=== PATIENT | female | born 1955 | race Caucasian/White ===

== ENCOUNTER → 2023-11-25 12:04 | Outpatient (REF) | payer MEDICARE, SELFPAY ==
[2023-11-25 13:28] LABS: % Basophils 1.1 % (0-2); % Immature Granulocytes 0.2 % (0-0.5); % Lymphocytes 48.5 % (20.5-51.1); % Monocytes 8.2 % (1.7-9.3); Absolute Basophils 0.1 10^3/uL (0-0.2); Absolute Eosinophils 0.3 10^3/uL (0-0.7); Absolute Lymphocytes 3.2 10^3/uL (1.2-3.4); Absolute Monocytes 0.5 10^3/uL (0.1-0.6); Absolute Neutrophils 2.5 10^3/uL (1.4-6.5); Hematocrit 39.3 % (37.0-47.0); Hemoglobin 13.1 g/dL (12.0-16.0); Mean Corp Hgb Conc. 33.3 g/dL (33.0-37.0); Mean Corpuscular Hgb 32.3 pg (27.0-31.0); Mean Corpuscular Volume 96.8 fL (81.0-99.0); Mean Platelet Volume 10.7 fL (7.4-10.4); Nucleated Red Blood Cells % 0 %; Platelet Count 241 10^3/uL (130-400); Red Blood Cell Count 4.06 10^6/uL (4.20-5.40); Red Cell Dist. Width 11.9 % (11.5-14.5); White Blood Cell Count 6.6 10^3/uL (4.8-10.8)
[2023-11-25 13:37] LABS: ALT (SGPT) 32 U/L (0-35); AST (SGOT) 29 U/L (14-36); Albumin 4.2 g/dl (3.5-5.0); Alkaline Phosphatase 83 U/L (38-126); Blood Urea Nitrogen 20 mg/dl (7-17); Calcium 8.6 mg/dl (8.4-10.2); Carbon Dioxide 26 mmol/L (22-30); Chloride 103 mmol/L (98-107); Glucose 122 mg/dl (70-99); HDL Cholesterol 48 mg/dl; LDL Cholesterol, Calculated 112 mg/dl; Potassium 4.2 mmol/L (3.5-5.1); Sodium 140 mmol/L (135-145); Total Bilirubin 0.5 mg/dl (0.2-1.3); Total Cholesterol 191 mg/dl (50-199); Total Protein 6.9 g/dl (6.3-8.2); Triglyceride 158 mg/dl (10-149); Very Low Density Lipoprotein 31 mg/dl (0-30); eGFR > 60.00
[2023-11-26 08:54] LABS: Glycohemoglobin (HgbA1c) 7.1 % (4.0-5.6)
== END ==
LOC: OLABBH 12:04
PROVIDERS: ATTENDING PHYSICIAN Family Medicine
DX: E78.5 Hyperlipidemia, unspecified (principal); E11.9 Type 2 diabetes mellitus without complications; I10 Essential (primary) hypertension
CPT/HCPCS: 80053; 80061; 83036; 85025

== ENCOUNTER → 2024-10-11 11:30 | Outpatient (REF) | payer MEDICARE, SELFPAY ==
[2024-10-11 17:28] LABS: Urine Character Cloudy (Clear)
[2024-10-11 17:46] LABS: Urine White Cell >100 /HPF (0-5)
== END ==
LOC: OLABBH 11:30
PROVIDERS: ATTENDING PHYSICIAN Family Medicine
DX: R30.0 Dysuria (principal)
CPT/HCPCS: 81003; 81015; 87077; 87086; 87186

== ENCOUNTER 2024-10-17 14:00 | Inpatient (IN) | payer MEDICARE, SELFPAY ==
[2024-10-13] VITALS (11 sets, daily range): BP systolic 84–122; BP diastolic 47–81; BMI 34.5; BMI 33.7
[2024-10-13 10:35] LABS: Hematocrit 39.1 % (37.0-47.0); Hemoglobin 13.4 g/dL (12.0-16.0); Mean Corp Hgb Conc. 34.3 g/dL (33.0-37.0); Mean Corpuscular Volume 96.1 fL (81.0-99.0); Nucleated Red Blood Cells % 0 %; Platelet Count 207 10^3/uL (130-400); Red Cell Dist. Width 12.1 % (11.5-14.5)
[2024-10-13 10:55] LABS: ALT (SGPT) 27 U/L (0-35); AST (SGOT) 25 U/L (14-36); Albumin 3.9 g/dl (3.5-5.0); Alkaline Phosphatase 75 U/L (38-126); Blood Urea Nitrogen 25 mg/dl (7-17); Calcium 8.8 mg/dl (8.4-10.2); Carbon Dioxide 23 mmol/L (22-30); Chloride 102 mmol/L (98-107); Estimated Creatinine Clearance 57 ml/min; Glucose 417 mg/dl (70-99); Potassium 3.5 mmol/L (3.5-5.1); Sodium 135 mmol/L (135-145); Total Protein 7.3 g/dl (6.3-8.2); eGFR > 60.00
--- NOTE | 2024-10-13 11:08 | ED.GENMED ---
History of Present Illness
General
Chief Complaint: Fainting/Passed Out
Source: halfway
Exam Limitations: dementia
Time Seen by Provider: 10/13/24 10:27
Nursing documentation reviewed up to this point in time: agreed with
History of Present Illness
History of Present Illness:
Patient is a 6-year-old female with history of hypertension high blood pressure type 2 diabetes presents from [facility]. Patient apparently had an unwitnessed fall at 7 AM. Triage note states that patient apparently got diagnosed with a
UTI several weeks ago but no treatment was started. Patient's medication list was sent from [facility] and there is no antibiotics on this list. She does have dementia and is a poor historian.
She does tell me she fell today. She denies any pain. She is not on blood thinners.
Nurse from [facility] reports mild baseline memory issues .
Nurse reports about 2 d ago pt seemed more confused. UA was obtained but they did not treat yet. Pt was apparently trying to get out of bed and was found on the floor. Paperwork mentions Type 2 diabetes however nurse reports pt has never been on
diabetic meds.
Past History
Past History
ED Past Medical History: Psychiatric
Social History
Tobacco: Non-smoker
Alcohol: None
Drug: None
Personal: Single
Living: alone
Phy Exam
General Physical Exam
General Presentation: no apparent distress
General age: appears stated age
General Skin: warm and dry
General Habitus: elderly
General Mental: confused
General Hydration: dry mucous membranes
Cardiovascular Exam
Cardiovascular Exam: regular rate/rhythm, no murmur and normal peripheral pulses
Pulmonary Exam
Pulmonary Exam: lungs clear and no respiratory distress
Neurological Exam
Neurological Exam: alert
Musculoskeletal Exam
Musculoskeletal Exam: full ROM
Skin Exam
Skin Exam: normal color and warm/dry
Psychiatric Exam
Psychiatric Exam: normal mood/affect
Course
Orders/Labs/Results
Orders:
Orders
10/13/24 10:27
CMP [Comprehensive Metabolic Panel] Urgent
Complete Blood Count/With Diff Urgent
10/13/24 11:09
CT Head W/o Iv Contrast Urgent
Comment:
Reason For Exam: fall
10/13/24 11:11
IV Insert/Care/Rem.- Treatment PRN
0.9% Sodium Chloride 500 ml [Nss] 500 ml IV BOLUS
10/13/24 11:13
Urinalysis Reflex To Culture Urgent
Date Specimen was Collected: 10/13/24
Time Specimen was Collected: 11:12
Urine Microscopic Reflex Cult Urgent
Urine Culture Urgent
TIANA Source: U
Specimen Description:
Date Specimen was Collected: 10/13/24
Time Specimen was Collected: 11:12
10/13/24 11:36
Electrocardiogram (*1) Stat
Reason for Study: Other
Other Reason for Exam: chest pain
Cardiac Monitoring- Treatment ONCE
EKG- Treatment ONCE
10/13/24 14:09
CefTRIAXone [Rocephin] 1,000 mg IV NOW STA
Abnormal Lab Results
10/13/24 10/13/24 10/13/24
10:27 11:13 13:45
RBC 4.07 L 10^6/uL
(4.20-5.40)
MCH 32.9 H pg
(27.0-31.0)
MPV 10.5 H fL
(7.4-10.4)
Absolute Neuts (auto) 8.4 H 10^3/uL
(1.4-6.5)
Absolute Lymphs (auto) 1.1 L 10^3/uL
(1.2-3.4)
Absolute Monos (auto) 0.9 H 10^3/uL
(0.1-0.6)
Neutrophils % 80.3 H %
(42.2-75.2)
Lymphocytes % 10.2 L %
(20.5-51.1)
BUN 25 H mg/dl
(7-17)
Glucose 417 H mg/dl
(70-99)
Urine Ketones 2+ A
(Negative)
Ur Occult Blood Reflex 4+ A
(Negative)
Urine Bilirubin 1+ A
(Negative)
Leukocyte Esterase Rfl 3+ A
(Negative)
Urine RBC 3-6 A /HPF
(0-2)
Urine WBC (Reflex) 70-80 A /HPF
(0-5)
Urine Bacteria (Reflex) Many A
(Negative)
Urine Albumin (Reflex) 4+ A
(Neg - Trace)
POC Glucose 258 H mg/dl
(70-99)
10/13/24 10:27
10/13/24 10:27
Vital Signs
Initial and Last Documented VS:
Initial Vital Signs
BP
101/67
10/13/24 10:14
Last Documented Vital Signs
Temp Pulse Resp BP Pulse Ox
98.5 F 82 18 89/55 86
10/13/24 10:17 10/13/24 13:15 10/13/24 10:17 10/13/24 13:08 10/13/24 13:15
MDM/Problems Addressed
Differential Diagnosis Includes:
Not limited to head injury, infection dehydration.
MDM/Problems Addressed:
Patient is a 69-year-old female from [facility] presents for evaluation of unwitnessed fall. Nurse reports that patient has had increased confusion for the past several days urinalysis was obtained and just came back today from the nursing
home the patient was not yet treated for positive UTI on urinalysis. Patient presents awake alert she is confused but she is aware that she fell she is trying to give history and does follow commands. CAT scan was done and negative there is no
obvious head injury. She is afebrile and nontoxic. Her white count is normal however urinalysis is positive for UTI.
In the setting of increased confusion fall and UTI would recommend treatment. IV Rocephin ordered. In addition patient's transfer sheet does that she has type 2 diabetes however I spoke with the nurse reports patient is not medicated for this.
Patient's sugar initially was 400 with normal renal function no gap. She received fluids and repeat sugar was 258. Also likely elevated in the acute infection
Chronic conditions affecting care:
Memory issues questionable diabetes
*Radiology
Radiology exam reviewed: radiology read reviewed
*Pulse Oximetry
SaO2: 95
Oxygen Mode of Delivery: Room air
Patient hypoxic: no
*EKG
Interpreted by ED Provider?: Yes
Heart Rate: 84
Rate: normal
Rhythm: sinus
Ischemia: no ischemia
*Critical Care Note
Total Time (30-74mins, 75-104mins- exclusive of procedures): Not Applicable
ED Attending Note
-
Portions of this chart may have been created with voice recognition software.� Occasional wrong word or��sound alike� substitutions may have occurred due to the inherent limitations of voice recognition software.
Discharge Plan
Departure
Patient Disposition: Admit
Date of Disposition: 10/13/24
Time of Disposition: 14:15
Admit to: Med/Surg
Admit to doctor: hospitalist
Presentation/result/management discussed w/ accepting MD/DO: Hospitalist
Patient with high blood pressure during this ER visit?: No
Condition: Fair
Covid-19: Not Applicable
Discharge Problem:
Acute UTI, Acute hyperglycemia
Referrals:
Morales Fraire MD [Family Provider, Family Practice]
Interventions
Interventions:
*Risk Screen - Suicide Last Done: 10/13/24 10:05
*General Assessment Last Done: 10/13/24 10:05
*Neglect/Abuse Screening Last Done: 10/13/24 10:05
*ED- Fall Risk Assessment Last Done: 10/13/24 10:05
*ED COVID-19 Vaccine History Last Done: 10/13/24 10:05
ED- Cardiac Assessment Last Done: 10/13/24 10:05
ED- Neurological Assessment Last Done: 10/13/24 10:05
Discharge Date and Time
Print Language: THAI
[2024-10-13] MEDS: NSS 500 IV (11:16)
[2024-10-13 11:40] LABS: Urine Character Cloudy (Clear)
[2024-10-13 12:20] LABS: Urine Squamous Cell 16-20 /LPF (Few)
[2024-10-13 12:21] LABS: Urine White Cell 70-80 /HPF (0-5)
--- NOTE | 2024-10-13 13:01 | ED TECH ---
[id number] Ale OWEN at [facility] for report when pt is discharged
[2024-10-13 13:47] LABS: Glucose - Point of Care 258 mg/dl (70-99)
[2024-10-13] MEDS: ROCEPHIN 1000 MG IV (14:42)
--- NOTE | 2024-10-13 15:32 | HPS.HSE ---
Family Physician
-
Family Physician: Morales Fraire
Chief Complaint
-
Fall, encephalopathy, UTI
History of Present Illness
Ms. Mendoza is a 69-year-old female with a medical history of dementia, hypertension, depression, and diabetes mellitus type 2 (reported, not on diabetic medications) who presented from her memory care unit ([facility]) after being found on the
ground. Patient does not remember how she ended up on the ground but remembers waking up there and calling for help. She denies any acute injuries. She is not on blood thinners. Staff at [facility] report worsening confusion over the past few
days prior to arrival. Reportedly patient was diagnosed with a UTI a few days ago but does not appear to have been started on antibiotics. Patient reports constipation which is chronic for her. She denies fevers, chest pain, shortness of breath,
abdominal pain, or dysuria.
In the ED, was hypotensive. She was breathing comfortably and saturating appropriately on room air. CT scan of her brain showed no acute abnormalities. Labs were significant for borderline leukocytosis 10.5, renal function and electrolytes are
within normal limits, blood glucose was 417, and urinalysis was positive for pyuria and bacteriuria in addition to albumin and RBCs. She was given IV fluids, following which her blood pressure improved. She was started on antibiotics with
ceftriaxone, and admitted for further evaluation and management of acute metabolic encephalopathy secondary to urinary tract infection.
Medical History
Past Medical History
Past Medical History: Reports Other
Additional Past Medical History:
dementia, hypertension, depression, and diabetes mellitus type 2 (reported, not on diabetic medications)
Past Surgical History: Reports Other
Additional Past Surgical History:
Patient reports laminectomy in her 20s, breast reduction surgery, right hand cyst removal
Social History
Unable to obtain full social history at this time due to: Dementia
Tobacco: Non-smoker
Alcohol: None
Drug: None
Personal: Single
Living: [facility]
Family History
Family History: Not pertinent
Allergies / Home Medications
Allergies reflects when Allergies were last updated in [facility].
Home Medications with original date entered in [facility]
Allergy/Medication List:
Allergies
Allergy/AdvReac Type Severity Reaction Status Date / Time
No Known Allergies Allergy Verified 04/30/22 15:53
Home Medications
acetaminophen 500 mg tablet (Tylenol Extra Strength) 1,000 mg PO BID 10/13/24
amlodipine 10 mg tablet (Norvasc) 10 mg PO DAILY 10/13/24
escitalopram oxalate 20 mg tablet (Lexapro) 20 mg PO DAILY 10/13/24
quetiapine 100 mg tablet (Seroquel) 100 mg PO DAILY 10/13/24
quetiapine 200 mg tablet 200 mg PO HS 10/13/24
rivastigmine tartrate 3 mg capsule 3 mg PO BID 10/13/24
Review of Systems
-
Unable to obtain full review of systems at this time due to: Dementia
History Source: Patient
A 12 point ROS was completed and negative except as noted: Yes
Neurological: Reports Other (Memory loss)
Physical Exam
Vital Signs
Vital Signs
Temp Pulse Resp BP Pulse Ox
98.5 F 84 18 104/47 90
10/13/24 10:17 10/13/24 15:00 10/13/24 10:17 10/13/24 15:00 10/13/24 15:00
Physical Exam
General: No Apparent Distress
Laboratory Results
-
10/13/24 10:27
10/13/24 10:27
Laboratory Results
Total Bilirubin 0.8 mg/dl (0.2-1.3) 10/13/24 10:27
AST 25 U/L (14-36) 10/13/24 10:27
ALT 27 U/L (0-35) 10/13/24 10:27
Alkaline Phosphatase 75 U/L (38-126) 10/13/24 10:27
Impression/Plan
-
General: No Apparent Distress, Comfortable and Conversant, obese
HEENT: NormoCephalic, Moist mucous membranes, Atraumatic
Respiratory: Clear and Non Labored Respirations
Cardiac: S1/S2 and Regular Rhythm; No Rub or Gallop
GI: Soft, Non Tender, Non Distended and Normal Bowel Sounds
Musculoskeletal: No Edema, no deformity
Skin: Warm and dry
: NO Brooks
Neuro: Awake, Alert, confusion with difficulty remembering recent events
Psych: Calm and cooperative
Ms. Mendoza is a 69-year-old female with a medical history of dementia, hypertension, depression, and diabetes mellitus type 2 (reported, not on diabetic medications) who presented from her memory care unit ([facility]) after being found on the
ground. Patient does not remember how she ended up on the ground but remembers waking up there and calling for help. She denies any acute injuries. She is not on blood thinners. Staff at [facility] report worsening confusion over the past few
days prior to arrival. Reportedly patient was diagnosed with a UTI a few days ago but does not appear to have been started on antibiotics. Patient reports constipation which is chronic for her. She denies fevers, chest pain, shortness of breath,
abdominal pain, or dysuria.
In the ED, was hypotensive. She was breathing comfortably and saturating appropriately on room air. CT scan of her brain showed no acute abnormalities. Labs were significant for borderline leukocytosis 10.5, renal function and electrolytes are
within normal limits, blood glucose was 417, and urinalysis was positive for pyuria and bacteriuria in addition to albumin and RBCs. She was given IV fluids, following which her blood pressure improved. She was started on antibiotics with
ceftriaxone, and admitted for further evaluation and management of acute metabolic encephalopathy secondary to urinary tract infection.
Acute metabolic encephalopathy secondary to urinary tract infection:
- Continue antibiotics with ceftriaxone
- Follow-up cultures taken in the ED today, prior urine cultures in chart from 10/11/2024 showed pansensitive E. coli
- Continue IV fluids, initially hypotensive but blood pressure appears to be returning to within normal limits, continue holding home amlodipine
- PT/OT evaluation
Diabetes mellitus type 2:
- Patient denies history of diabetes but says many of her family members were recently diagnosed with diabetes
- Patient's medication record that include any diabetic medications
- Blood glucose on initial labs here was 417, hemoglobin A1c from 11/25/2023 was 7.1%
- Will check hemoglobin A1c now
- Diabetic diet
- Sliding scale insulin
- Consult to diabetes nurse practitioner
Hypertension:
- Outpatient medication list show she uses amlodipine 10 mg daily at home, will hold due to presenting hypotension
- Restart antihypertensive regimen as able
Dementia:
- Presented from memory care unit at [facility]
- Will continue home escitalopram 20 mg daily, quetiapine 100 mg in the morning and 200 mg at night, and rivastigmine 3 mg twice daily
DVT prophylaxis: Lovenox
CODE STATUS: Full code
Total time spent on today's encounter was 55 minutes
[2024-10-13 18:22] LABS: Glucose - Point of Care 187 mg/dl (70-99)
--- NOTE | 2024-10-13 18:45 | PTCARENOTE ---
Rn relations coordinator-Called to Amara(guardian) and Macey (Rn at [facility]) for medical information.
[2024-10-13] MEDS: NSS 1000 IV (18:47)
[2024-10-13] MEDS: LOVENOX 40 MG SC (18:50)
[2024-10-13] MEDS: TYLENOL 1000 MG PO (20:17)
[2024-10-13] MEDS: EXELON 3 MG PO (20:17)
[2024-10-13 20:21] LABS: Glucose - Point of Care 237 mg/dl (70-99)
[2024-10-13] MEDS: SEROQUEL 200 MG PO (20:24)
[2024-10-13] MEDS: NOVOLOG FLEXPEN-LOW RESISTANCE 2 UNITS SC (20:24)
[2024-10-14] VITALS: BP 116/75
--- NOTE | 2024-10-14 06:31 | PTCARENOTE ---
Pt refusing care or to be changed this am. Pt is verbally abusive, waiving her call tavera at us. Pt yelling 'leave me the fuck alone and get the fuck away from me!' attempts made to re orient and explain to pt what we are doing and pt states 'I don't
give a fuck!' Will attempt to change pt again.
--- NOTE | 2024-10-14 06:54 | PN.DE.MGMTRT ---
Insulin Management
- -
10/14/2024 Diabetes management Consult
Patient admitted 10/13 s/p fall at [facility]. H HTN, diabetes, depression, dementia. Prior to admission was taking no diabetes medications. A1C ordered for today. Cr 1, eGFR > 60.
Patient is alert, confused, noncooperative. No family at bedside.
A1C 7.8%. Corrective insulin started, will add metformin 500 mg BID, Diet reduced from 2000 calorie to 1600 calorie.
Discussed with nurse
Will follow.
Diabetes History
- -
Type of Diabetes: 2
Pre-Admission Diabetes Regimen
10/13/24
10:27
Creatinine 1.0
Insulin Pump Settings
IP Diabetes Regimen
10/13/24 10/13/24 10/13/24
10:27 13:45 18:21
Glucose 417 H
POC Glucose 258 H 187 H
10/13/24
20:17
Glucose
POC Glucose 237 H
Patient Education
[2024-10-14 08:01] VITALS: BP 138/78
[2024-10-14 08:13] LABS: Glucose - Point of Care 191 mg/dl (70-99)
[2024-10-14] MEDS: SEROQUEL 100 MG PO (08:34)
[2024-10-14] MEDS: NOVOLOG FLEXPEN-LOW RESISTANCE 1 UNITS SC ×3 (08:34→18:28)
[2024-10-14] MEDS: TYLENOL 1000 MG PO ×2 (08:34→21:51)
[2024-10-14] MEDS: EXELON 3 MG PO ×2 (08:34→21:52)
[2024-10-14] MEDS: LEXAPRO 20 MG PO (08:34)
[2024-10-14] MEDS: DESENEX/MITRAZOL/ZEASORB 1 APPLIC TOPICAL ×2 (08:36→21:52)
[2024-10-14] MEDS: GLUCOPHAGE 500 MG PO ×2 (08:43→17:16)
[2024-10-14 09:32] LABS: Hematocrit 36.9 % (37.0-47.0); Hemoglobin 12.5 g/dL (12.0-16.0); Mean Corp Hgb Conc. 33.9 g/dL (33.0-37.0); Mean Corpuscular Volume 95.8 fL (81.0-99.0); Nucleated Red Blood Cells % 0 %; Platelet Count 232 10^3/uL (130-400); Red Cell Dist. Width 12.1 % (11.5-14.5)
[2024-10-14 10:10] LABS: Blood Urea Nitrogen 13 mg/dl (7-17); Calcium 8.3 mg/dl (8.4-10.2); Carbon Dioxide 24 mmol/L (22-30); Chloride 106 mmol/L (98-107); Estimated Creatinine Clearance 94 ml/min; Glucose 179 mg/dl (70-99); Potassium 3.4 mmol/L (3.5-5.1); Sodium 139 mmol/L (135-145); eGFR > 60.00
[2024-10-14 11:02] LABS: Hepatitis C Antibody Negative (Negative)
[2024-10-14 11:55] LABS: Glycohemoglobin (HgbA1c) 7.8 % (4.0-5.6)
[2024-10-14 12:05] LABS: Glucose - Point of Care 195 mg/dl (70-99)
--- NOTE | 2024-10-14 12:15 | CM ---
Addendum entered by Dora Alvarado RN 10/14/24 14:58:
SPoke with guardian Kaya Christiano . She was notified pt was under observation. Kaya said [facility] will not accept her back at [place]. Pt refused PT eval . Pt will need to go to SNF at [place] as per guardian .
Original Note:
Alert awake oriented who lives at [facility] where she is assisted in ADLs. She uses no adaptive devices.
[facility] letter explained Copy given Pt declined to sign copy.
No VN /SNF hx as per patient.
[facility]
PCP DR Fraire /DR Dick Denson
PLAN Return to [facility]
[2024-10-14] MEDS: STERILE WATER FOR INJECTION 20 ML IV (14:08)
[2024-10-14] MEDS: ROCEPHIN 2000 MG IV (14:10)
[2024-10-14 15:00] VITALS: BP 116/71
--- NOTE | 2024-10-14 15:00 | W.PN.HOSP.TC ---
Today's Communication/Plan
-
Assessment / Plan
Assessment / Plan
General: No Apparent Distress, Comfortable and Conversant, obese
HEENT: NormoCephalic, Moist mucous membranes, Atraumatic
Respiratory: Clear and Non Labored Respirations
Cardiac: S1/S2 and Regular Rhythm; No Rub or Gallop
GI: Soft, Non Tender, Non Distended and Normal Bowel Sounds
Musculoskeletal: No Edema, no deformity
Skin: Warm and dry
: NO Brooks
Neuro: Awake, Alert, confusion with difficulty remembering recent events
Psych: Calm and cooperative
Ms. Mendoza is a 69-year-old female with a medical history of dementia, hypertension, depression, and diabetes mellitus type 2 (reported, not on diabetic medications) who presented from her memory care unit ([facility]) after being found on the
ground. Patient does not remember how she ended up on the ground but remembers waking up there and calling for help. She denies any acute injuries. She is not on blood thinners. Staff at [facility] report worsening confusion over the past few
days prior to arrival. Reportedly patient was diagnosed with a UTI a few days ago but does not appear to have been started on antibiotics. Patient reports constipation which is chronic for her. She denies fevers, chest pain, shortness of breath,
abdominal pain, or dysuria.
In the ED, was hypotensive. She was breathing comfortably and saturating appropriately on room air. CT scan of her brain showed no acute abnormalities. Labs were significant for borderline leukocytosis 10.5, renal function and electrolytes are
within normal limits, blood glucose was 417, and urinalysis was positive for pyuria and bacteriuria in addition to albumin and RBCs. She was given IV fluids, following which her blood pressure improved. She was started on antibiotics with
ceftriaxone, and admitted for further evaluation and management of acute metabolic encephalopathy secondary to urinary tract infection.
Acute metabolic encephalopathy secondary to urinary tract infection:
- Continue antibiotics with ceftriaxone
- Urine cultures taken in the ED growing E. coli with sensitivities pending, prior urine cultures in chart from 10/11/2024 showed pansensitive E. coli
- Improving, can likely switch antibiotics to p.o. in the next 24 hours
- PT/OT evaluation for dispo planning
Hypokalemia:
- Potassium 3.4
- Replete and continue to monitor
Diabetes mellitus type 2:
- Patient denies history of diabetes but says many of her family members were recently diagnosed with diabetes
- Patient's medication record that include any diabetic medications
- Blood glucose on initial labs here was 417, hemoglobin A1c 7.8%
- Diabetic diet
- Sliding scale insulin
- Being followed by diabetes nurse practitioner
Hypertension:
- Outpatient medication list show she uses amlodipine 10 mg daily at home, holding for now due to presenting hypotension
- Likely restart antihypertensive regimen tomorrow 10/15
Dementia:
- Presented from memory care unit at [facility]
- Continuing outpatient escitalopram 20 mg daily, quetiapine 100 mg in the morning and 200 mg at night, and rivastigmine 3 mg twice daily
DVT prophylaxis: Lovenox
CODE STATUS: Full code
Total time spent on today's encounter was 45 minutes
Anticipated Discharge: 24 - 48 hours
Subjective/Interval History
-
Date of Service: October 14, 2024
Patient was seen and examined at bedside this morning. Continues to feel very weak and fatigued. Continuing treatment for urinary tract infection.
Objective Data
-
Labs:
Laboratory Results
10/14/24 10/14/24
09:13 09:14
WBC 8.9
Hgb 12.5
Hct 36.9 L
Plt Count 232
Sodium 139
Potassium 3.4 L
Chloride 106
Carbon Dioxide 24
BUN 13
Creatinine 0.5 L
Glucose 179 H
Calcium 8.3 L
Vital Signs:
Vital Signs
Temp Pulse Resp BP Pulse Ox
99.5 F 92 16 138/78 93
10/14/24 08:01 10/14/24 08:01 10/14/24 08:01 10/14/24 08:01 10/14/24 11:00
I&O
10/13/24 10/14/24 10/15/24
06:59 06:59 06:59
Intake Total 240 / 240
Balance 240 / 240
Review of Systems
-
Constitutional: Reports Fatigue and Weakness
Physical Exam
-
General: No Apparent Distress
[2024-10-14 17:11] LABS: Glucose - Point of Care 184 mg/dl (70-99)
[2024-10-14] MEDS: LOVENOX 40 MG SC (17:15)
[2024-10-14 21:48] LABS: Glucose - Point of Care 211 mg/dl (70-99)
[2024-10-14] MEDS: SEROQUEL 200 MG PO (21:52)
[2024-10-15 07:51] LABS: Glucose - Point of Care 164 mg/dl (70-99)
[2024-10-15 08:27] VITALS: BP 118/72
[2024-10-15] MEDS: EXELON 3 MG PO ×2 (09:14→20:29)
[2024-10-15] MEDS: TYLENOL 1000 MG PO ×2 (09:14→20:29)
[2024-10-15] MEDS: GLUCOPHAGE 500 MG PO ×2 (09:14→17:39)
[2024-10-15] MEDS: SEROQUEL 100 MG PO (09:14)
[2024-10-15] MEDS: LEXAPRO 20 MG PO (09:18)
[2024-10-15] MEDS: DESENEX/MITRAZOL/ZEASORB 1 APPLIC TOPICAL ×2 (09:18→20:30)
[2024-10-15] MEDS: NOVOLOG FLEXPEN-LOW RESISTANCE 1 UNITS SC ×2 (09:18→17:37)
--- NOTE | 2024-10-15 11:27 | W.PN.HOSP.TC ---
Today's Communication/Plan
-
Assessment / Plan
Assessment / Plan
General: No Apparent Distress, Comfortable and Conversant, obese
HEENT: NormoCephalic, Moist mucous membranes, Atraumatic
Respiratory: Clear and Non Labored Respirations
Cardiac: S1/S2 and Regular Rhythm; No Rub or Gallop
GI: Soft, Non Tender, Non Distended and Normal Bowel Sounds
Musculoskeletal: No Edema, no deformity
Skin: Warm and dry
: NO Brooks
Neuro: Awake, Alert, confusion with difficulty remembering recent events
Psych: Calm and cooperative
Ms. Mendoza is a 69-year-old female with a medical history of dementia, hypertension, depression, and diabetes mellitus type 2 (reported, not on diabetic medications) who presented from her memory care unit ([facility]) after being found on the
ground. Patient does not remember how she ended up on the ground but remembers waking up there and calling for help. She denies any acute injuries. She is not on blood thinners. Staff at [facility] report worsening confusion over the past few
days prior to arrival. Reportedly patient was diagnosed with a UTI a few days ago but does not appear to have been started on antibiotics. Patient reports constipation which is chronic for her. She denies fevers, chest pain, shortness of breath,
abdominal pain, or dysuria.
In the ED, was hypotensive. She was breathing comfortably and saturating appropriately on room air. CT scan of her brain showed no acute abnormalities. Labs were significant for borderline leukocytosis 10.5, renal function and electrolytes are
within normal limits, blood glucose was 417, and urinalysis was positive for pyuria and bacteriuria in addition to albumin and RBCs. She was given IV fluids, following which her blood pressure improved. She was started on antibiotics with
ceftriaxone, and admitted for further evaluation and management of acute metabolic encephalopathy secondary to urinary tract infection.
Acute metabolic encephalopathy secondary to urinary tract infection:
- Continue antibiotics with ceftriaxone
- Urine cultures taken in the ED growing pansensitive E. coli with sensitivities pending
- Clinically improving, switching antibiotics to cefdinir to complete a 5-day course last dose on the evening of 10/17
-Medically stable for discharge, case management working on placement
Hypokalemia:
- Potassium 3.4
- Replete and continue to monitor
Diabetes mellitus type 2:
- Patient denies history of diabetes but says many of her family members were recently diagnosed with diabetes
- Patient's medication record does not include any diabetic medications
- Blood glucose on initial labs here was 417, hemoglobin A1c 7.8%
- Diabetes nurse practitioner following, started on metformin 500 mg twice daily with additional sliding scale as needed
- Diabetic diet
Hypertension:
- Outpatient medication list shows she uses amlodipine 10 mg daily at home
- Currently not requiring antihypertensive medication, will restart home amlodipine as needed
Dementia:
- Presented from memory care unit at [facility]
- Continuing outpatient escitalopram 20 mg daily, quetiapine 100 mg in the morning and 200 mg at night, and rivastigmine 3 mg twice daily
DVT prophylaxis: Lovenox
CODE STATUS: Full code
Total time spent on today's encounter was 40 minutes
Anticipated Discharge: 24 - 48 hours
Subjective/Interval History
-
Date of Service: October 15, 2024
Patient was seen and examined at bedside this morning. Feeling well. Medically stable for discharge. Working on placement.
Objective Data
-
Labs:
Laboratory Results
10/15/24
10:42
Sodium Pending
Potassium Pending
Chloride Pending
Carbon Dioxide Pending
BUN Pending
Creatinine Pending
Glucose Pending
Calcium Pending
Vital Signs:
Vital Signs
Temp Pulse Resp BP Pulse Ox
98.8 F 76 15 118/72 93
10/15/24 08:27 10/15/24 08:27 10/15/24 08:27 10/15/24 08:27 10/14/24 15:00
I&O
10/14/24 10/15/24 10/16/24
06:59 06:59 06:59
Intake Total 240 / 240 240 / 240
Balance 240 / 240 240 / 240
Review of Systems
-
History Source: Patient
All other systems: Reviewed and negative
Physical Exam
-
General: No Apparent Distress
[2024-10-15 11:43] LABS: Blood Urea Nitrogen 12 mg/dl (7-17); Calcium 8.7 mg/dl (8.4-10.2); Carbon Dioxide 27 mmol/L (22-30); Chloride 106 mmol/L (98-107); Estimated Creatinine Clearance 94 ml/min; Glucose 183 mg/dl (70-99); Potassium 3.5 mmol/L (3.5-5.1); Sodium 140 mmol/L (135-145); eGFR > 60.00
[2024-10-15 12:10] LABS: Glucose - Point of Care 147 mg/dl (70-99)
[2024-10-15] MEDS: NOVOLOG FLEXPEN-LOW RESISTANCE SC (12:12)
--- NOTE | 2024-10-15 12:36 | PTCARENOTE ---
The patient is grossly inc of urine. she is aware of it but refuses us to clean her up. I re approached her a second time and asked if i could clean her and she said yes. PT stood. her bed was so saturated with urine there was pools of water. I did
clean her. her bottom is red cream applied. pt sat in chair for most of morning. she was stood with min assist and was steady. She is alert able to make needs known but is not understanding she is at the hospital does not know the year. this is her
baseline. 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 pt now resting in bed with call tavera in hand. fall risk sign on door. bed and chair alarm on.
[2024-10-15] MEDS: OMNICEF 300 MG PO ×2 (13:43→20:30)
[2024-10-15 16:04] VITALS: BP 134/82
[2024-10-15 17:00] LABS: Glucose - Point of Care 168 mg/dl (70-99)
[2024-10-15] MEDS: LOVENOX 40 MG SC (17:38)
[2024-10-15 21:03] LABS: Glucose - Point of Care 159 mg/dl (70-99)
[2024-10-15 23:00] VITALS: BP 124/85
[2024-10-15] MEDS: SEROQUEL 200 MG PO (23:13)
[2024-10-16 07:34] VITALS: BP 136/82
[2024-10-16 08:23] LABS: Glucose - Point of Care 161 mg/dl (70-99)
[2024-10-16] MEDS: SEROQUEL 100 MG PO (08:37)
[2024-10-16] MEDS: EXELON 3 MG PO ×2 (08:37→19:45)
[2024-10-16] MEDS: LEXAPRO 20 MG PO (08:37)
[2024-10-16] MEDS: TYLENOL 1000 MG PO ×2 (08:37→19:45)
[2024-10-16] MEDS: GLUCOPHAGE 500 MG PO ×2 (08:38→17:42)
[2024-10-16] MEDS: NOVOLOG FLEXPEN-LOW RESISTANCE 1 UNITS SC ×2 (08:38→17:41)
[2024-10-16] MEDS: OMNICEF 300 MG PO ×2 (08:38→19:46)
[2024-10-16] MEDS: DESENEX/MITRAZOL/ZEASORB 1 APPLIC TOPICAL ×2 (08:38→19:48)
[2024-10-16 10:46] LABS: Blood Urea Nitrogen 14 mg/dl (7-17); Calcium 8.7 mg/dl (8.4-10.2); Carbon Dioxide 30 mmol/L (22-30); Chloride 104 mmol/L (98-107); Estimated Creatinine Clearance 94 ml/min; Glucose 159 mg/dl (70-99); Potassium 3.7 mmol/L (3.5-5.1); Sodium 140 mmol/L (135-145); eGFR > 60.00
[2024-10-16 12:15] LABS: Glucose - Point of Care 144 mg/dl (70-99)
[2024-10-16 12:31] VITALS: PULSE 86; O2SAT 94
[2024-10-16] MEDS: NOVOLOG FLEXPEN-LOW RESISTANCE SC (13:26)
--- NOTE | 2024-10-16 14:16 | CM ---
Patient from [facility] with Hx dementia with Dx Acute metabolic encephalopathy secondary to urinary tract infection. Room air. Receiving PO Abx, Seroquel. PT recommends skilled rehab. Per nurse; forgetful, uncooperative.
Spoke with Kaya, patient's guardian; provided update that patient worked with PT who recommends skilled rehab. Kaya mentioned that in addition to not being allowed to return to [facility], [facility] also evicted her, and prior to that she was
evicted from several hotels. The evictions have been due to behaviors including voluntary defecating on floor and in bed, which will be a barrier to discharge/placement in SNF. Kaya will be interested in placement at [facility], otherwise
[facility].
Case discussed with Dr Heck; patient's behaviors may be a barrier to discharge. Wondering if med management can help. Best chance of SNFs accepting once adverse behaviors are managed.
Plan SNF referrals once behaviors improve.
[2024-10-16 15:14] VITALS: BP 138/93
--- NOTE | 2024-10-16 15:54 | W.PN.HOSP.TC ---
Today's Communication/Plan
-
Assessment / Plan
Assessment / Plan
General: No Apparent Distress, Comfortable and Conversant, obese
HEENT: NormoCephalic, Moist mucous membranes, Atraumatic
Respiratory: Clear and Non Labored Respirations
Cardiac: S1/S2 and Regular Rhythm; No Rub or Gallop
GI: Soft, Non Tender, Non Distended and Normal Bowel Sounds
Musculoskeletal: No Edema, no deformity
Skin: Warm and dry
: NO Brooks
Neuro: Awake, Alert, confusion with difficulty remembering recent events
Psych: Calm and cooperative
Ms. Mendoza is a 69-year-old female with a medical history of dementia, hypertension, depression, and diabetes mellitus type 2 (reported, not on diabetic medications) who presented from her memory care unit ([facility]) after being found on the
ground. Patient does not remember how she ended up on the ground but remembers waking up there and calling for help. She denies any acute injuries. She is not on blood thinners. Staff at [facility] report worsening confusion over the past few
days prior to arrival. Reportedly patient was diagnosed with a UTI a few days ago but does not appear to have been started on antibiotics. Patient reports constipation which is chronic for her. She denies fevers, chest pain, shortness of breath,
abdominal pain, or dysuria.
In the ED, was hypotensive. She was breathing comfortably and saturating appropriately on room air. CT scan of her brain showed no acute abnormalities. Labs were significant for borderline leukocytosis 10.5, renal function and electrolytes are
within normal limits, blood glucose was 417, and urinalysis was positive for pyuria and bacteriuria in addition to albumin and RBCs. She was given IV fluids, following which her blood pressure improved. She was started on antibiotics with
ceftriaxone, and admitted for further evaluation and management of acute metabolic encephalopathy secondary to urinary tract infection.
Acute metabolic encephalopathy secondary to urinary tract infection:
- Urine cultures taken in the ED growing pansensitive E. coli with sensitivities pending
- Clinically improving, switched antibiotics to cefdinir to complete a 5-day course last dose on the evening of 10/17
- Medically stable for discharge, case management working on placement, has court appointed guardian from previous admission
Hypokalemia:
- Resolved
Diabetes mellitus type 2:
- Patient denies history of diabetes but says many of her family members were recently diagnosed with diabetes
- Patient's medication record does not include any diabetic medications
- Blood glucose on initial labs here was 417, hemoglobin A1c 7.8%
- Diabetes nurse practitioner following, started on metformin 500 mg twice daily with additional sliding scale as needed, blood glucose now better controlled
- Diabetic diet
Hypertension:
- Outpatient medication list shows she uses amlodipine 10 mg daily at home
- Currently not requiring antihypertensive medication, will restart home amlodipine as needed likely tomorrow 10/17 with holding parameters
Dementia:
- Presented from memory care unit at [facility]
- Continuing outpatient escitalopram 20 mg daily, quetiapine 100 mg in the morning and 200 mg at night, and rivastigmine 3 mg twice daily
DVT prophylaxis: Lovenox
CODE STATUS: Full code
Total time spent on today's encounter was 40 minutes
Anticipated Discharge: 24 - 48 hours
Subjective/Interval History
-
Date of Service: October 16, 2024
Patient was seen and examined at bedside this morning. Remains comfortable, medically stable for discharge. Awaiting placement.
Objective Data
-
Labs:
Laboratory Results
10/16/24
10:12
Sodium 140
Potassium 3.7
Chloride 104
Carbon Dioxide 30
BUN 14
Creatinine 0.5 L
Glucose 159 H
Calcium 8.7
Vital Signs:
Vital Signs
Temp Pulse Resp BP Pulse Ox
98.1 F 84 16 136/82 95
10/16/24 07:34 10/16/24 07:34 10/16/24 07:34 10/16/24 07:34 10/16/24 07:34
I&O
10/15/24 10/16/24 10/17/24
06:59 06:59 06:59
Intake Total 240 / 240 240 / 240
Balance 240 / 240 240 / 240
Review of Systems
-
History Source: Patient
All other systems: Reviewed and negative
Physical Exam
-
General: No Apparent Distress
[2024-10-16 17:38] LABS: Glucose - Point of Care 182 mg/dl (70-99)
[2024-10-16] MEDS: LOVENOX SC (17:42)
[2024-10-16 21:38] LABS: Glucose - Point of Care 118 mg/dl (70-99)
[2024-10-16] MEDS: SEROQUEL 200 MG PO (22:31)
[2024-10-16 23:02] VITALS: BP 139/97
[2024-10-17 06:57] LABS: Glucose - Point of Care 131 mg/dl (70-99)
[2024-10-17 07:31] VITALS: BP 137/91
--- NOTE | 2024-10-17 07:35 | PN.DE.MGMTRT ---
Insulin Management
- -
10/17/2024 Diabetes management Consult Follow up
Patient admitted 10/13 s/p fall at [facility], [facility]. H HTN, diabetes, depression, dementia. Prior to admission was taking no diabetes medications. A1C ordered for today. Cr 1, eGFR > 60.
Patient is alert, confused, noncooperative. No family at bedside.
A1C 7.8%.
Glucose range 118 to 182, acceptable for patient age and dementia. Will make no change to metformin 500 mg BID with corrective insulin.
Discussed with nurse
Will follow.
Diabetes History
- -
Type of Diabetes: 2
Pre-Admission Diabetes Regimen
10/16/24
10:12
Creatinine 0.5 L
Lab Results
Hemoglobin A1c 7.8 % (4.0-5.6) H 10/14/24 09:13
Insulin Pump Settings
IP Diabetes Regimen
10/16/24 10/16/24 10/16/24
08:21 10:12 12:14
Glucose 159 H
POC Glucose 161 H 144 H
10/16/24 10/16/24 10/17/24
17:32 21:37 06:56
Glucose
POC Glucose 182 H 118 H 131 H
Meal type: Lunch
Meal type: Breakfast
Patient Education
[2024-10-17] MEDS: NOVOLOG FLEXPEN-LOW RESISTANCE SC ×2 (08:48→12:19)
[2024-10-17] MEDS: EXELON 3 MG PO ×2 (08:52→21:05)
[2024-10-17] MEDS: NORVASC 10 MG PO (08:52)
[2024-10-17] MEDS: GLUCOPHAGE 500 MG PO ×2 (08:52→17:37)
[2024-10-17] MEDS: TYLENOL 1000 MG PO ×2 (08:53→21:04)
[2024-10-17] MEDS: OMNICEF 300 MG PO ×2 (08:53→21:04)
[2024-10-17] MEDS: SEROQUEL 100 MG PO (08:53)
[2024-10-17] MEDS: LEXAPRO 20 MG PO (09:02)
[2024-10-17] MEDS: DESENEX/MITRAZOL/ZEASORB 1 APPLIC TOPICAL ×2 (09:03→21:06)
--- NOTE | 2024-10-17 09:19 | W.PN.HOSP.TC ---
Today's Communication/Plan
-
dispo planning
Assessment / Plan
Assessment / Plan
General: No Apparent Distress, Comfortable and Conversant, obese
HEENT: NormoCephalic, Moist mucous membranes, Atraumatic
Respiratory: Clear and Non Labored Respirations
Cardiac: S1/S2 and Regular Rhythm; No Rub or Gallop
GI: Soft, Non Tender, Non Distended and Normal Bowel Sounds
Musculoskeletal: No Edema, no deformity
Skin: Warm and dry
: NO Brooks
Neuro: Awake, Alert, confusion with difficulty remembering recent events
Psych: Calm and cooperative
Ms. Mendoza is a 69-year-old female with a medical history of dementia, hypertension, depression, and diabetes mellitus type 2 (reported, not on diabetic medications) who presented from her memory care unit ([facility]) after being found on the
ground. Patient does not remember how she ended up on the ground but remembers waking up there and calling for help. She denies any acute injuries. She is not on blood thinners. Staff at [facility] report worsening confusion over the past few
days prior to arrival. Reportedly patient was diagnosed with a UTI a few days ago but does not appear to have been started on antibiotics. Patient reports constipation which is chronic for her. She denies fevers, chest pain, shortness of breath,
abdominal pain, or dysuria.
In the ED, was hypotensive. She was breathing comfortably and saturating appropriately on room air. CT scan of her brain showed no acute abnormalities. Labs were significant for borderline leukocytosis 10.5, renal function and electrolytes are
within normal limits, blood glucose was 417, and urinalysis was positive for pyuria and bacteriuria in addition to albumin and RBCs. She was given IV fluids, following which her blood pressure improved. She was started on antibiotics with
ceftriaxone, and admitted for further evaluation and management of acute metabolic encephalopathy secondary to urinary tract infection.
Acute metabolic encephalopathy secondary to urinary tract infection:
- Urine cultures taken in the ED growing pansensitive E. coli with sensitivities pending
- Clinically improving, switched antibiotics to cefdinir to complete a 5-day course last dose on the evening of 10/17
- Medically stable for discharge, case management working on placement, has court appointed guardian from previous admission
Hypokalemia:
- Resolved
Diabetes mellitus type 2:
- Patient denies history of diabetes but says many of her family members were recently diagnosed with diabetes
- Patient's medication record does not include any diabetic medications
- Blood glucose on initial labs here was 417, hemoglobin A1c 7.8%
- Diabetes nurse practitioner following, started on metformin 500 mg twice daily with additional sliding scale as needed, blood glucose now better controlled
- Diabetic diet
Hypertension:
- Outpatient medication list shows she uses amlodipine 10 mg daily at home
- Currently not requiring antihypertensive medication, will restart home amlodipine as needed likely tomorrow 10/17 with holding parameters
Dementia:
- Presented from memory care unit at [facility]
- Continuing outpatient escitalopram 20 mg daily, quetiapine 100 mg in the morning and 200 mg at night, and rivastigmine 3 mg twice daily
DVT prophylaxis: Lovenox
CODE STATUS: Full code
Total time spent on today's encounter was 40 minutes
Anticipated Discharge: Within 24 hours
Subjective/Interval History
-
Date of Service: October 17, 2024
patient stating she is fine and she doesn't need to be here
Objective Data
-
Vital Signs:
Vital Signs
Temp Pulse Resp BP Pulse Ox
97.5 F 81 17 137/91 95
10/17/24 07:31 10/17/24 07:31 10/17/24 07:31 10/17/24 07:31 10/17/24 07:31
I&O
10/16/24 10/17/24 10/18/24
06:59 06:59 06:59
Intake Total 240 / 240 960 / 960
Balance 240 / 240 960 / 960
Review of Systems
-
History Source: Patient
All other systems: Reviewed and negative
Physical Exam
-
General: Well Nourished and No Apparent Distress
HEENT: PERRLA
Respiratory: Clear to Auscultation; Negative Wheezes
Cardiac: Regular Rhythm and S1/S2
GI: Soft and Nontender
Musculoskeletal: No Edema
Skin: Warm and Dry; Negative Rash
Neuro: Awake and Alert
Psych: Calm
Data Reviewed
-
Diagnostic Radiology: Report Reviewed by me
Labs: Labs Reviewed by me
[2024-10-17 11:33] LABS: Glucose - Point of Care 146 mg/dl (70-99)
--- NOTE | 2024-10-17 13:59 | CM ---
Spoke with Amara Alvarado guardian regarding SNF referrals
referrals she requested entered in careport
Amara stated patient is aware going to SNF
PT rec SNF
Will need ins authorization once bed secured
PLAN: SNF, pending acceptance/bed availability when stable
[2024-10-17 15:16] VITALS: BP 151/95
[2024-10-17 16:46] LABS: Glucose - Point of Care 155 mg/dl (70-99)
[2024-10-17] MEDS: LOVENOX 40 MG SC (17:37)
[2024-10-17] MEDS: NOVOLOG FLEXPEN-LOW RESISTANCE 1 UNITS SC (17:38)
[2024-10-17] MEDS: SEROQUEL 200 MG PO (21:05)
[2024-10-17 21:31] LABS: Glucose - Point of Care 138 mg/dl (70-99)
[2024-10-17 23:18] VITALS: BP 135/97
--- NOTE | 2024-10-18 02:29 | DOWNTIME ---
There was a [employer] Client [employer] Downtime on 10/18/2024 from 0100 to 10/18/2024 at 0220. Downtime documentation of patient's care, including medication administrations, has been reconciled in the electronic record per guidelines. Refer to the
patient's paper chart under the miscellaneous tab to see printed paper medication records and downtime forms.
[2024-10-18 07:00] VITALS: BP 132/81
--- NOTE | 2024-10-18 07:41 | PN.DE.MGMTRT ---
Insulin Management
- -
10/18/2024 Diabetes management Consult Follow up
Patient admitted 10/13 s/p fall at [facility], [facility]. H HTN, diabetes, depression, dementia. Prior to admission was taking no diabetes medications. A1C ordered for today. Cr 1, eGFR > 60.
Patient is alert, confused, noncooperative. No family at bedside.
A1C 7.8%.
Glucose range 131 to 155, acceptable for patient age and dementia. Will make no change to metformin 500 mg BID with corrective insulin. Patient for SNF placement.
Discussed with nurse
Will follow.
Diabetes History
- -
Type of Diabetes: 2
Pre-Admission Diabetes Regimen
Lab Results
Hemoglobin A1c 7.8 % (4.0-5.6) H 10/14/24 09:13
Insulin Pump Settings
IP Diabetes Regimen
10/17/24 10/17/24 10/17/24
11:32 16:44 21:30
POC Glucose 146 H 155 H 138 H
Meal type: Lunch
Meal type: Breakfast
Amount consumed: 80%
Amount consumed: 90%
Patient Education
[2024-10-18 07:42] LABS: Glucose - Point of Care 132 mg/dl (70-99)
[2024-10-18] MEDS: NOVOLOG FLEXPEN-LOW RESISTANCE SC ×3 (07:45→17:06)
[2024-10-18] MEDS: TYLENOL 1000 MG PO ×2 (08:22→21:50)
[2024-10-18] MEDS: GLUCOPHAGE 500 MG PO ×2 (08:22→16:59)
[2024-10-18] MEDS: SEROQUEL 100 MG PO (08:22)
[2024-10-18] MEDS: EXELON 3 MG PO ×2 (08:22→21:51)
[2024-10-18] MEDS: LEXAPRO 20 MG PO (08:22)
[2024-10-18] MEDS: OMNICEF 300 MG PO (08:22)
[2024-10-18] MEDS: DESENEX/MITRAZOL/ZEASORB 1 APPLIC TOPICAL ×2 (08:23→21:51)
[2024-10-18] MEDS: NORVASC 10 MG PO (08:23)
--- NOTE | 2024-10-18 10:25 | W.PN.HOSP.TC ---
Today's Communication/Plan
-
dispo planning for SNF
Assessment / Plan
Assessment / Plan
General: No Apparent Distress, Comfortable and Conversant, obese
HEENT: NormoCephalic, Moist mucous membranes, Atraumatic
Respiratory: Clear and Non Labored Respirations
Cardiac: S1/S2 and Regular Rhythm; No Rub or Gallop
GI: Soft, Non Tender, Non Distended and Normal Bowel Sounds
Musculoskeletal: No Edema, no deformity
Skin: Warm and dry
: NO Brooks
Neuro: Awake, Alert, confusion with difficulty remembering recent events
Psych: Calm and cooperative
Ms. Mendoza is a 69-year-old female with a medical history of dementia, hypertension, depression, and diabetes mellitus type 2 (reported, not on diabetic medications) who presented from her memory care unit ([facility]) after being found on the
ground. Patient does not remember how she ended up on the ground but remembers waking up there and calling for help. She denies any acute injuries. She is not on blood thinners. Staff at [facility] report worsening confusion over the past few
days prior to arrival. Reportedly patient was diagnosed with a UTI a few days ago but does not appear to have been started on antibiotics. Patient reports constipation which is chronic for her. She denies fevers, chest pain, shortness of breath,
abdominal pain, or dysuria.
In the ED, was hypotensive. She was breathing comfortably and saturating appropriately on room air. CT scan of her brain showed no acute abnormalities. Labs were significant for borderline leukocytosis 10.5, renal function and electrolytes are
within normal limits, blood glucose was 417, and urinalysis was positive for pyuria and bacteriuria in addition to albumin and RBCs. She was given IV fluids, following which her blood pressure improved. She was started on antibiotics with
ceftriaxone, and admitted for further evaluation and management of acute metabolic encephalopathy secondary to urinary tract infection.
Acute metabolic encephalopathy secondary to urinary tract infection:
- Urine cultures taken in the ED growing pansensitive E. coli with sensitivities pending
- Clinically improving, switched antibiotics to cefdinir - last dose today
- Medically stable for discharge, case management working on placement, has court appointed guardian from previous admission
Hypokalemia:
- Resolved
Diabetes mellitus type 2:
- Patient denies history of diabetes but says many of her family members were recently diagnosed with diabetes
- Patient's medication record does not include any diabetic medications
- Blood glucose on initial labs here was 417, hemoglobin A1c 7.8%
- Diabetes nurse practitioner following, started on metformin 500 mg twice daily with additional sliding scale as needed, blood glucose now better controlled
- Diabetic diet
Hypertension:
- Outpatient medication list shows she uses amlodipine 10 mg daily at home
- Amlodipine resumed with holding parameters
Dementia:
- Presented from memory care unit at [facility]
- Continuing outpatient escitalopram 20 mg daily, quetiapine 100 mg in the morning and 200 mg at night, and rivastigmine 3 mg twice daily
DVT prophylaxis: Lovenox
CODE STATUS: Full code
Total time spent on today's encounter was 40 minutes
Anticipated Discharge: Within 24 hours
Subjective/Interval History
-
Date of Service: October 18, 2024
she is resting comfortably
no new complaints
Objective Data
-
Vital Signs:
Vital Signs
Temp Pulse Resp BP Pulse Ox
97.8 F 85 18 132/81 95
10/18/24 07:00 10/18/24 08:23 10/18/24 07:00 10/18/24 08:23 10/18/24 07:00
I&O
10/17/24 10/18/24 10/19/24
06:59 06:59 06:59
Intake Total 960 / 960 480 / 480
Balance 960 / 960 480 / 480
Review of Systems
-
History Source: Patient
All other systems: Reviewed and negative
Physical Exam
-
General: Well Nourished and No Apparent Distress
HEENT: PERRLA
Respiratory: Clear to Auscultation; Negative Wheezes
Cardiac: Regular Rhythm and S1/S2
GI: Soft and Nontender
Musculoskeletal: No Edema
Skin: Warm and Dry; Negative Rash
Neuro: Awake and Alert
Psych: Calm
Data Reviewed
-
Diagnostic Radiology: Report Reviewed by me
Labs: Labs Reviewed by me
[2024-10-18 11:50] LABS: Glucose - Point of Care 129 mg/dl (70-99)
[2024-10-18 15:00] VITALS: BP 103/57
--- NOTE | 2024-10-18 15:53 | W.DCSUMMARY ---
Discharge Summary
Discharge Data
Date of Admission: 10/13/24
Date of Discharge: 10/18/24
-
Pending Results: No
Hospital Course
Discharging Physician : Dr. Yuliya Aguilera
Disposition : SNF
Primary care physician : Dr. Morales Fraire
Principal Discharge diagnosis : TME 2/2 UTI
Hospital Course :
Ms. Pushpa Mendoza is a 69-year-old female with a medical history of dementia, hypertension, depression, and diabetes mellitus type 2 (reported, not on diabetic medications) who presented from her memory care unit ([facility]) after being found on
the ground.
In the ED, was hypotensive. She was breathing comfortably and saturating appropriately on room air. CT scan of her brain showed no acute abnormalities. Labs were significant for borderline leukocytosis 10.5, renal function and electrolytes are
within normal limits, blood glucose was 417, and urinalysis was positive for pyuria and bacteriuria in addition to albumin and RBCs. She was given IV fluids, following which her blood pressure improved. She was started on antibiotics with
ceftriaxone, and admitted for further evaluation and management of acute metabolic encephalopathy secondary to urinary tract infection.
She received IV Ceftriaxone then Cefdinir in the hospital. She completed her antibiotic course while inpatient. Her blood pressure improved; and she is resumed on her home Amlodipine for hypertension.
Patient's blood glucose on initial labs was 417, HgA1c 7.8%. She was seen by [facility] and newly started on Metformin.
Patient worked with PT and SNF recommended.
Time spent on discharge was 31 minutes.
Important imaging findings :
Procedure findings :
Discharge Plan
-
Patient Disposition: Senior Living/SNF
Discharge Diagnosis/Procedures: toxic metabolic encephalopathy secondary to urinary tract infection
Diet: Regular
Activity: As tolerated
Driving Restrictions: No driving
Bathing Restrictions: None
Other Services: PT
Referrals:
Morales Fraire MD [Family Provider, Family Practice] - in less than 1 week
Additional Discharge Medication Instructions: You completed your course of antibiotics in the hospital
Prescriptions:
No Action
quetiapine 200 mg tablet
200 mg PO HS
quetiapine [Seroquel] 100 mg Tablet
100 mg PO DAILY
acetaminophen [Tylenol Extra Strength] 500 mg Tablet
1,000 mg PO BID
amlodipine [Norvasc] 10 mg Tablet
10 mg PO DAILY
rivastigmine tartrate 3 mg Capsule
3 mg PO BID
escitalopram oxalate [Lexapro] 20 mg Tablet
20 mg PO DAILY
Discharge Date and Time
Print Language: ALGERIAN
[2024-10-18] MEDS: LOVENOX 40 MG SC (17:00)
[2024-10-18 17:06] LABS: Glucose - Point of Care 114 mg/dl (70-99)
--- NOTE | 2024-10-18 17:44 | CM ---
Patient chart reviewed
Referrals in careport
Luana from [facility] stated will accept
Spoke with Amara Alvarado guardian agreeable
Will need to obtain insurance authorization
will need updated PT/OT notes-they are aware
[facility]: [id number]
Dr. Pope NPI #: [id number]
CM to initate auth tomorrow once seen by PT/OT
PLAN: [facility], once authorization is approved
[2024-10-18 19:00] VITALS: BP 130/90
[2024-10-18 21:40] LABS: Glucose - Point of Care 112 mg/dl (70-99)
[2024-10-18] MEDS: SEROQUEL 200 MG PO (21:52)
[2024-10-18 23:00] VITALS: BP 138/83
--- NOTE | 2024-10-19 07:15 | PN.DE.MGMTRT ---
Insulin Management
- -
10/19/2024 Diabetes management Consult Follow up
Patient admitted 10/13 s/p fall at [facility], [facility]. H HTN, diabetes, depression, dementia. Prior to admission was taking no diabetes medications. A1C 7.8. Cr 1, eGFR > 60.
Patient is alert, confused, noncooperative. No family at bedside.
Glucose range 112 to 132, acceptable for patient age and dementia. Will make no change to metformin 500 mg BID with corrective insulin. Has required no corrective insulin for past 24 hours. Patient for SNF placement.
Discussed with nurse
Will follow.
Diabetes History
- -
Type of Diabetes: 2
Pre-Admission Diabetes Regimen
Lab Results
Hemoglobin A1c 7.8 % (4.0-5.6) H 10/14/24 09:13
Insulin Pump Settings
IP Diabetes Regimen
10/18/24 10/18/24 10/18/24
07:41 11:48 17:04
POC Glucose 132 H 129 H 114 H
10/18/24
21:38
POC Glucose 112 H
Meal type: Lunch
Meal type: Breakfast
Meal type: Lunch
Meal type: Breakfast
Amount consumed: 100%
Amount consumed: 100%
Amount consumed: 100%
Amount consumed: 0
Patient Education
--- NOTE | 2024-10-19 07:24 | W.PN.HOSP.TC ---
Today's Communication/Plan
-
bowel regimen
medically stable for discharge pending SNF auth bed availability
Assessment / Plan
Assessment / Plan
General: No Apparent Distress, Comfortable and Conversant, obese
HEENT: NormoCephalic, Moist mucous membranes, Atraumatic
Respiratory: Clear and Non Labored Respirations
Cardiac: S1/S2 and Regular Rhythm; No Rub or Gallop
GI: Soft, Non Tender, abd distended w/ decreased bowel sounds
Musculoskeletal: No Edema, no deformity
Skin: Warm and dry
Neuro: AOx2 disoriented to time conversant coherent
Psych: Calm and cooperative
Ms. Mendoza is a 69-year-old female with a medical history of dementia, hypertension, depression, and diabetes mellitus type 2 (reported, not on diabetic medications) who presented from her memory care unit ([facility]) after being found on the
ground. Patient does not remember how she ended up on the ground but remembers waking up there and calling for help. She denies any acute injuries. She is not on blood thinners. Staff at [facility] report worsening confusion over the past few
days prior to arrival. Reportedly patient was diagnosed with a UTI a few days ago but does not appear to have been started on antibiotics. Patient reports constipation which is chronic for her. She denies fevers, chest pain, shortness of breath,
abdominal pain, or dysuria.
In the ED, was hypotensive. She was breathing comfortably and saturating appropriately on room air. CT scan of her brain showed no acute abnormalities. Labs were significant for borderline leukocytosis 10.5, renal function and electrolytes are
within normal limits, blood glucose was 417, and urinalysis was positive for pyuria and bacteriuria in addition to albumin and RBCs. She was given IV fluids, following which her blood pressure improved. She was started on antibiotics with
ceftriaxone, and admitted for further evaluation and management of acute metabolic encephalopathy secondary to urinary tract infection.
Acute metabolic encephalopathy secondary to urinary tract infection:
- Urine cultures taken in the ED growing pansensitive E. coli with sensitivities pending
- Clinically improving, switched antibiotics to cefdinir - last dose today
- Medically stable for discharge, case management working on placement, has court appointed guardian from previous admission
Hypokalemia:
- Resolved
Diabetes mellitus type 2:
- Patient denies history of diabetes but says many of her family members were recently diagnosed with diabetes
- Patient's medication record does not include any diabetic medications
- Blood glucose on initial labs here was 417, hemoglobin A1c 7.8%
- Diabetes nurse practitioner following, started on metformin 500 mg twice daily with additional sliding scale as needed, blood glucose now better controlled
- Diabetic diet
Hypertension:
- Outpatient medication list shows she uses amlodipine 10 mg daily at home
- Amlodipine resumed with holding parameters
Dementia:
- Presented from memory care unit at [facility]
- Continuing outpatient escitalopram 20 mg daily, quetiapine 100 mg in the morning and 200 mg at night, and rivastigmine 3 mg twice daily
Constipation
-bowel regimen Miralax Colace Senna
DVT prophylaxis: Lovenox
CODE STATUS: Full code
Medically stable for discharge pending SNF auth bed availability
I spent a total of 37 minutes with the patient or on the floor. More than 50% of this time involved counseling and coordination of care.
Anticipated Discharge: Within 24 hours
Subjective/Interval History
-
Date of Service: October 19, 2024
No acute distress, overall reports feeling well though constipated requesting laxatives. Otherwise denies new acute issues.
Objective Data
-
Vital Signs:
Vital Signs
Temp Pulse Resp BP Pulse Ox
98.9 F 81 16 138/83 95
10/18/24 23:00 10/18/24 23:00 10/18/24 23:00 10/18/24 23:00 10/18/24 23:00
I&O
10/18/24 10/19/24 10/20/24
06:59 06:59 06:59
Intake Total 480 / 480 600 / 600
Balance 480 / 480 600 / 600
[2024-10-19 09:01] VITALS: BP 123/72
[2024-10-19 09:01] LABS: Glucose - Point of Care 116 mg/dl (70-99)
[2024-10-19] MEDS: NOVOLOG FLEXPEN-LOW RESISTANCE SC ×3 (09:10→16:54)
[2024-10-19] MEDS: NORVASC 10 MG PO (09:24)
[2024-10-19] MEDS: EXELON 3 MG PO ×2 (09:24→21:52)
[2024-10-19] MEDS: TYLENOL 1000 MG PO ×2 (09:25→21:51)
[2024-10-19] MEDS: GLUCOPHAGE 500 MG PO ×2 (09:25→17:28)
[2024-10-19] MEDS: LEXAPRO 20 MG PO (09:25)
[2024-10-19] MEDS: SEROQUEL 100 MG PO (09:26)
[2024-10-19] MEDS: DESENEX/MITRAZOL/ZEASORB TOPICAL (09:28)
[2024-10-19 11:26] LABS: Glucose - Point of Care 113 mg/dl (70-99)
[2024-10-19] MEDS: MIRALAX 17 GRAMS PO (12:55)
[2024-10-19] MEDS: SENOKOT-S 1 TABLET PO ×2 (12:55→21:52)
--- NOTE | 2024-10-19 14:56 | CM ---
Addendum entered by Sis Goss 10/19/24 15:17:
Pended auth #:[id number]
Original Note:
CM called [facility] to initiate ins auth. for [facility] NPI #: [id number]
Dr. Pope NPI #: [id number]
Spoke with Ale ([phone]) & faxed clinicals to [phone]
Spoke with swetha Alvarado & updated
Called & spoke with Luana liaison [phone] & updated
PLAN: [facility], once insurance ins approved
Report #: [phone]
Fax #: [phone]
--- NOTE | 2024-10-19 16:24 | PTCARENOTE ---
Assumed care of this pt @1500. Pt initially refusing vitals signs and blood sugar check, but after education on importance, pt allowed both. POC discussed with pt. POC ongoing.
[2024-10-19 16:30] VITALS: BP 119/81
[2024-10-19 16:41] LABS: Glucose - Point of Care 133 mg/dl (70-99)
[2024-10-19] MEDS: LOVENOX 40 MG SC (17:28)
[2024-10-19] MEDS: DESENEX/MITRAZOL/ZEASORB 1 APPLIC TOPICAL (21:50)
[2024-10-19] MEDS: SEROQUEL 200 MG PO (21:53)
[2024-10-19 21:56] LABS: Glucose - Point of Care 136 mg/dl (70-99)
[2024-10-19 23:00] VITALS: BP 142/87
--- NOTE | 2024-10-20 06:48 | W.PN.HOSP.TC ---
Today's Communication/Plan
-
Discharge
Assessment / Plan
Assessment / Plan
General: No Apparent Distress, Comfortable and Conversant, obese
HEENT: NormoCephalic, Moist mucous membranes, Atraumatic
Respiratory: Clear and Non Labored Respirations
Cardiac: S1/S2 and Regular Rhythm; No Rub or Gallop
GI: Soft, Non Tender, abd distended w/ decreased bowel sounds
Musculoskeletal: No Edema, no deformity
Skin: Warm and dry
Neuro: AOx2 disoriented to time conversant coherent
Psych: Calm and cooperative
Ms. Mendoza is a 69-year-old female with a medical history of dementia, hypertension, depression, and diabetes mellitus type 2 (reported, not on diabetic medications) who presented from her memory care unit ([facility]) after being found on the
ground. Patient does not remember how she ended up on the ground but remembers waking up there and calling for help. She denies any acute injuries. She is not on blood thinners. Staff at [facility] report worsening confusion over the past few
days prior to arrival. Reportedly patient was diagnosed with a UTI a few days ago but does not appear to have been started on antibiotics. Patient reports constipation which is chronic for her. She denies fevers, chest pain, shortness of breath,
abdominal pain, or dysuria.
In the ED, was hypotensive. She was breathing comfortably and saturating appropriately on room air. CT scan of her brain showed no acute abnormalities. Labs were significant for borderline leukocytosis 10.5, renal function and electrolytes are
within normal limits, blood glucose was 417, and urinalysis was positive for pyuria and bacteriuria in addition to albumin and RBCs. She was given IV fluids, following which her blood pressure improved. She was started on antibiotics with
ceftriaxone, and admitted for further evaluation and management of acute metabolic encephalopathy secondary to urinary tract infection.
Acute metabolic encephalopathy secondary to urinary tract infection:
- Urine cultures taken in the ED growing pansensitive E. coli with sensitivities pending
- Clinically improving, switched antibiotics to cefdinir - last dose today
- Medically stable for discharge, case management working on placement, has court appointed guardian from previous admission
Hypokalemia:
- Resolved
Diabetes mellitus type 2:
- Patient denies history of diabetes but says many of her family members were recently diagnosed with diabetes
- Patient's medication record does not include any diabetic medications
- Blood glucose on initial labs here was 417, hemoglobin A1c 7.8%
- Diabetes nurse practitioner following, started on metformin 500 mg twice daily with additional sliding scale as needed, blood glucose now better controlled
- Diabetic diet
Hypertension:
- Outpatient medication list shows she uses amlodipine 10 mg daily at home
- Amlodipine resumed with holding parameters
Dementia:
- Presented from memory care unit at [facility]
- Continuing outpatient escitalopram 20 mg daily, quetiapine 100 mg in the morning and 200 mg at night, and rivastigmine 3 mg twice daily
Constipation
-bowel regimen Miralax Colace Senna
-resolved at this time
DVT prophylaxis: Lovenox
CODE STATUS: Full code
Medically stable for discharge SNF rehab with outpatient follow up recommendations.
Total Time Preparing Discharge __40 minutes including examination of the patient, summary of the hospital stay, instructions for continuing care to all relevant caregivers; and preparation of discharge records, prescriptions, and referral
forms if necessary.
Anticipated Discharge: Today
Subjective/Interval History
-
Date of Service: October 20, 2024
No acute distress, reports feeling well, constipation resolved. Denies new acute issues at this time.
Objective Data
-
Vital Signs:
Vital Signs
Temp Pulse Resp BP Pulse Ox
99.2 F 83 16 142/87 94
10/19/24 23:00 10/19/24 23:00 10/19/24 23:00 10/19/24 23:00 10/19/24 23:00
I&O
07/22/25 07/23/25 07/24/25
06:59 06:59 06:59
Intake Total 480 / 480 600 / 600 720 / 720
Balance 480 / 480 600 / 600 720 / 720
--- NOTE | 2024-10-20 07:35 | PN.DE.MGMTRT ---
Insulin Management
- -
10/20/2024 Diabetes management Consult Follow up
Patient admitted 10/13 s/p fall at [facility]. H HTN, diabetes, depression, dementia. Prior to admission was taking no diabetes medications. A1C 7.8. Cr 1, eGFR > 60.
Patient is alert, confused, noncooperative. No family at bedside.
Glucose range 113 to 136, acceptable for patient age and dementia. Will make no change to metformin 500 mg BID with corrective insulin. Has required no corrective insulin for past 48 hours. Patient for SNF placement.
Discussed with nurse
Will follow.
Diabetes History
- -
Type of Diabetes: 2
Pre-Admission Diabetes Regimen
Lab Results
Hemoglobin A1c 7.8 % (4.0-5.6) H 10/14/24 09:13
Insulin Pump Settings
IP Diabetes Regimen
10/19/24 10/19/24 10/19/24
08:58 11:25 16:40
POC Glucose 116 H 113 H 133 H
10/19/24
21:55
POC Glucose 136 H
Meal type: Dinner
Meal type: Lunch
Meal type: Breakfast
Amount consumed: 100%
Patient Education
[2024-10-20 08:03] VITALS: BP 108/68
[2024-10-20 08:14] LABS: Glucose - Point of Care 131 mg/dl (70-99)
[2024-10-20] MEDS: NOVOLOG FLEXPEN-LOW RESISTANCE SC ×3 (08:29→17:48)
[2024-10-20] MEDS: EXELON 3 MG PO (08:56)
[2024-10-20] MEDS: TYLENOL 1000 MG PO (08:56)
[2024-10-20] MEDS: SENOKOT-S PO ×2 (08:56→09:01)
[2024-10-20] MEDS: LEXAPRO 20 MG PO (08:56)
[2024-10-20] MEDS: GLUCOPHAGE 500 MG PO ×2 (08:56→17:56)
[2024-10-20] MEDS: SEROQUEL 100 MG PO (08:56)
[2024-10-20] MEDS: MIRALAX PO ×2 (08:56→09:02)
[2024-10-20] MEDS: NORVASC PO (08:57)
[2024-10-20] MEDS: DESENEX/MITRAZOL/ZEASORB 1 APPLIC TOPICAL (08:58)
--- NOTE | 2024-10-20 09:20 | W.DCSUMMARY ---
Discharge Summary
Discharge Data
Date of Admission: 10/17/24
Date of Discharge: 10/20/24
-
Pending Results: No
Discharge Plan
-
Patient Disposition: Care Home/SNF
Discharge Diagnosis/Procedures: toxic metabolic encephalopathy secondary to urinary tract infection
Diabetes
Obesity
Dementia
Condition: Fair
Diet: Regular
Activity: As tolerated
Driving Restrictions: No driving
Bathing Restrictions: None
Other Services: PT and OT
Activity Restrictions/Additional Instructions:
Follow up with primary care provider in 1 week of discharge.
Metformin prescribed for diabetes and Obesity.
Please take medications as prescribed/recommended and follow up with primary care provider and/or other healthcare provider involved in your care for refills and/or further adjustment to your medication regimen as necessary.
Referrals:
Morales Fraire MD [Family Provider, Family Practice] - in one week
Additional Discharge Medication Instructions: You completed your course of antibiotics in the hospital
Prescriptions:
New
metformin 500 mg Tablet
500 mg PO BID@0800,1700 Qty: 60 0RF
Continued
quetiapine 200 mg tablet
200 mg PO HS
quetiapine [Seroquel] 100 mg Tablet
100 mg PO DAILY
acetaminophen [Tylenol Extra Strength] 500 mg Tablet
1,000 mg PO BID
amlodipine [Norvasc] 10 mg Tablet
10 mg PO DAILY
rivastigmine tartrate 3 mg Capsule
3 mg PO BID
escitalopram oxalate [Lexapro] 20 mg Tablet
20 mg PO DAILY
Discharge Orders:
Discharge Patient (As Directed); Ordered 10/20/24
Ordered By: Leodan Duval
Discharge Date and Time
Print Language: TAJIK
--- NOTE | 2024-10-20 11:31 | CM ---
CM awaiting SNF authorization from [facility] for transfer to [facility].
Report #: [phone]
Fax #: [phone]
[2024-10-20 11:47] LABS: Glucose - Point of Care 138 mg/dl (70-99)
--- NOTE | 2024-10-20 13:56 | CM ---
Addendum entered by Ai Chen 10/20/24 14:47:
VM left for [facility] admissions regarding pt transfer today and authorization provided. Ambulance transport being requested. Pt's guardian, Amara Alvarado aware of plan for transfer to [facility] today.
Report: [phone]

Original Note:
called [facility] for update regarding for [facility]. I spoke with Demi who advised that the authorization is approved. Authorization number is [id number] for dates of sevice 10/20-10/24/24.
Liberty Fowler is the reviewer for update on 10/24/2024.
[2024-10-20 15:00] VITALS: BP 139/86
--- NOTE | 2024-10-20 16:34 | CM ---
JEREMY was able to confirm that Pushpa is approved for transfer to [facility]; I spoke with Hanna who advised she is being admitted to room 22B.
Pt's guardian notified of plans for transfer today via ambulance and provided verbal consent for the IMM.
--- NOTE | 2024-10-20 16:41 | CM ---
Pt's guardian, Amara Alvarado notified of plan for transfer to [facility] today and advised of 7PM picker and packer. IMM reviewed and verbal consent provided.
--- NOTE | 2024-10-20 16:52 | PTCARENOTE ---
pt repeatedly refused all hygiene care throughout, threatening to hit staff, and telling care team to 'get the hell out of my room' 'leave me alone', 'how about I punch you' It was offered multiple times by RN and PCT. Pt had dried BM on leg and
adamantly refused to let anyone touch her. Pt will be discharged to her SNF facility in this manner, despite the efforts of nursing team
[2024-10-20 16:58] LABS: Glucose - Point of Care 119 mg/dl (70-99)
[2024-10-20] MEDS: LOVENOX 40 MG SC (17:57)
== END 2024-10-20 19:59 | DRG 689 ==
LOC: 3 WEST ACU 14:00
PROVIDERS: Nurse Practitioner; ADMITTING PHYSICIAN Internal Medicine; ATTENDING PHYSICIAN Internal Medicine; EMERGENCY PHYSICIAN Emergency Medicine; FAMILY PHYSICIAN Family Medicine
DX: N39.0 Urinary tract infection, site not specified (principal); G92.8 Other toxic encephalopathy; F03.93 Unspecified dementia, unspecified severity, with mood disturbance; E66.9 Obesity, unspecified; F32.A Depression, unspecified; E11.9 Type 2 diabetes mellitus without complications; I10 Essential (primary) hypertension; K59.00 Constipation, unspecified; W19.XXXA Unspecified fall, initial encounter; Z79.899 Other long term (current) drug therapy; Z83.3 Family history of diabetes mellitus
CPT/HCPCS: 70450; 80048; 80053; 81003; 81015; 82962; 83036; 85025; 86803; 87070; 87077; 87086; 87186; 93005; 96361; 96374; 97162; 97167; 97530; 97535; 99285